=== PATIENT | male | born 1990 ===

== ENCOUNTER 2017-01-08 19:42 | Inpatient (IN) | payer BC, OTHER ==
[2017-01-08 19:42] VITALS: BMI 20.7
[2017-01-08] MEDS ORDERED: Albuterol-Ipratrop 3 mg / 0.5 (3 ml) UD INH STA (20:21)
[2017-01-08] MEDS ORDERED: Albuterol-Ipratrop 3 mg / 0.5 (3 ml) UD ONE (20:25)
--- NOTE | 2017-01-08 20:38 | ED PDOC ---
HPI: Asthma History Per: Patient History/Exam Limitations: no limitations Onset/Duration Of Symptoms: Hrs Current Symptoms Are (Timing): Still Present Associated Symptoms: Dyspnea, Cough, Chest Pain. denies: Sputum Production, Hemoptysis, Fever Precipitating Factors: Weather Change Severity: Moderate Pain Scale Rating Of: 10 Additional Complaint(s): CC: Shortness of breath HPI: The patient is a 26 y/o man w/ PMH of moderate/severe persistent asthma presents with shortness of breath. The SOB started last night with associated non-productive cough and chest pain with cough. The patient denies hemoptysis but does complain of sore throat. The patient denies any sick contacts. The patient reports that he used his ventolin 2 hours before arriving to ED with non relief. The patient reports using inhaler everyday, having nighttime awakenings every night, and hospitalization 1 year ago for asthma related symptoms. The patient reports smoking 4 cigarettes per day for several years ( doesn't know how long) but denies alcohol and other drug use. The patient reports that his father also has asthma. The patient denies headaches, dizziness, abdominal pain, nausea, vomiting, diarrhea, dysuria, and fevers. Allergies: NKDA PMH: mod/severe asthma PSH: right foot plated Fam: father has asthma ROS: negative for 10 systems reviewed excepted for noted in HPI - Asthma History Medication Use: Daily Rescue Medications: Short-acting Agonists Control Medications: None Last Dose: 2 hours ago <Chau Francisco - Last Filed: 01/09/17 00:36> <Kika Santos - Last Filed: 01/09/17 17:17> Time Seen by Provider: 01/08/17 19:47 Chief Complaint (Nursing): Shortness Of Breath Supervising Attending Note - Supervising Attending Note The Documented history was done by the: Physician Psychologist Industrial Organizational, Attending Physician The documented physical exam was done by the: Physician Psychologist Industrial Organizational, Attending Physician - Attestation: I have personally seen and examined this patient.: Yes I have fully participated in the care of the patient.: Yes I have reviewed all pertinent clinical information: Yes - Notes: Notes:: Persistent wheeze and symptoms despite asthma meds in ER. Hospitalized for further management. [facility]. <Kika Santos - Last Filed: 01/09/17 17:17> Past Medical History Vital Signs: Last Vital Signs Temp 98.2 F 01/08/17 19:45 Pulse 65 01/08/17 19:45 Resp 18 01/08/17 20:03 BP 113/58 L 01/08/17 19:45 Pulse Ox 96 01/08/17 20:03 - Medical History PMH: Asthma, Diverticulitis, Hiatal Hernia Denies: Chronic Kidney Disease - Surgical History Surgical History: Denies: Pacemaker - Family History Family History: States: Unknown Family Hx - Immunization History Hx Tetanus Toxoid Vaccination: No Hx Influenza Vaccination: No Hx Pneumococcal Vaccination: No <Chau Francisco - Last Filed: 01/09/17 00:36> Vital Signs: Last Vital Signs Temp 98.1 F 01/09/17 16:52 Pulse 66 01/09/17 16:52 Resp 18 01/09/17 16:52 BP 120/72 01/09/17 16:52 Pulse Ox 98 01/09/17 16:52 <Kika Santos - Last Filed: 01/09/17 17:17> - Home Medications Home Medications: Ambulatory Orders Medication Instructions Recorded Fluticasone/Salmeterol [Advair 1 inh INH BID 12/02/15 500-50 Diskus] oxyCODONE/Acetaminophen [Percocet 1 ea PO QID #6 tab 09/09/16 5/325 mg Tab] Albuterol HFA [Ventolin HFA 90 1 puff IH PRN 01/09/17 mcg/actuation (8 g)] - Allergies Allergies/Adverse Reactions: Allergies Allergy/AdvReac Type Severity Reaction Status Date / Time seafood AdvReac ANAPHYLAXIS Uncoded 12/07/16 15:26 Review of Systems ROS Statement: Except As Marked, All Systems Reviewed And Found Negative Constitutional: Negative for: Fever, Weight loss Eyes: Negative for: Pain ENT: Positive for: Throat Pain. Negative for: Throat Swelling Cardiovascular: Negative for: Palpitations Respiratory: Positive for: Cough, Shortness of Breath, Pleuritic Pain, Wheezing. Negative for: Hemoptysis, Sputum Gastrointestinal: Negative for: Nausea, Vomiting, Abdominal Pain, Diarrhea Genitourinary Male: Negative for: Dysuria Skin: Negative for: Rash Neurological: Negative for: Altered Mental Status, Headache <Maryam,Chau Aldo - Last Filed: 01/09/17 00:36> Physical Exam - Physical Exam Appears: Positive for: No Acute Distress Head Exam: Positive for: ATRAUMATIC, NORMOCEPHALIC Skin: Positive for: Warm, Dry. Negative for: Diaphoresis, Pallor, Rash ENT: Positive for: Pharyngeal Erythema. Negative for: Tonsillar Exudate, Tonsillar Swelling Neck: Positive for: Normal, Supple Cardiovascular/Chest: Positive for: Regular Rate, Rhythm. Negative for: Tachycardia Respiratory: Positive for: Wheezing (inspiratory and expiratory wheeze). Negative for: Accessory Muscle Use, Respiratory Distress Pulses-Carotid (L): 2+ Pulses-Carotid (R): 2+ Pulses-Dorsalis Pedis (L): 2+ Pulses-Dorsalis Pedis (R): 2+ Pulses-Radial (L): 2+ Pulses-Radial (R): 2+ Gastrointestinal/Abdominal: Positive for: Normal Exam, Bowel Sounds, Soft. Negative for: Tenderness, Distended Extremity: Negative for: Tenderness, Pedal Edema, Calf Tenderness Neurologic/Psych: Positive for: Alert, Oriented <Chau Francisco - Last Filed: 01/09/17 00:36> - Laboratory Results Result Diagrams: 01/08/17 22:16 01/08/17 22:16 - ECG O2 Sat by Pulse Oximetry: 96 <Chau Francisco - Last Filed: 01/09/17 00:36> - Laboratory Results Result Diagrams: 01/09/17 05:35 01/09/17 05:35 <Kika Santos - Last Filed: 01/09/17 17:17> Medical Decision Making Medical Decision Making: The patient is a 26 y/o man w/ PMH of moderate/severe persistent asthma presents with shortness of breath 20:30 CXR peak flow duonebs x3 methylprednisolone 125 mg IM tylenol PO motrin PO re-evaluate after duoneb treatments 22:00 improvement of inspiratory wheeze after completing x3 duonebs treatment patient denied tylenol and motrin CXR: (prelim) WNL, no active disease processes seen collect CBC w/ diff, CMP, lactic acid, alcohol level, drug screen, urine dip, blood culture, influenza A/B Toradol IM for pain re-evaluate 24:00 CBC, CMP, alcohol, flu A/B WNL patient still feels ill will be admitted under Dr. Gordon Reyes <Chau Francisco - Last Filed: 01/09/17 00:36> Disposition - Patient ED Disposition Is Patient to be Admitted: Yes Discussed With DrRosie: Kika Santos Counseled Patient/Family Regarding: Studies Performed, Diagnosis, Rx Given - Disposition Disposition Time: 00:03 - Pt Status Changed To: Hospital Disposition Of: Observation - POA Present On Arrival: None <Chau Francisco - Last Filed: 01/09/17 00:36> <Kika Santos - Last Filed: 01/09/17 17:17> - Clinical Impression Clinical Impression: Asthma exacerbation - Disposition Condition: STABLE
[2017-01-08 22:35] LABS: BASO # 0.1 K/uL (0.0-0.2); BASO % 0.7 % (0.0-2.0); EOS # 0.2 K/uL (0.0-0.7); EOS % 1.8 % (0.0-4.0); HEMATOCRIT 41.6 % (35.0-51.0); LYMPH # 1.9 K/uL (1.0-4.3); LYMPH % 20.6 % (20.0-40.0); MEAN CELL VOLUME 96.1 fl (80.0-94.0); MEAN CORPUSCULAR HEMOGLOBIN 31.9 pg (27.0-31.0); MEAN CORPUSCULAR HGB CONC 33.2 g/dL (33.0-37.0); MEAN PLATELET VOLUME 9.6 fl (7.2-11.7); MONO # 0.5 K/uL (0.0-0.8); MONO % 5.5 % (0.0-10.0); NEUT # 6.7 K/uL (1.8-7.0); NEUT % 71.4 % (50.0-75.0); RED CELL DISTRIBUTION WIDTH 13.8 % (11.5-14.5); WHITE BLOOD COUNT 9.3 K/uL (4.8-10.8)
[2017-01-08 22:55] LABS: ALB/GLOB RATIO 1.4 (1.0-2.1); ALCOHOL SERUM < 10 mg/dl (0-10); ALKALINE PHOSPHATASE 70 U/L (38-126); ALT/SGPT 26 U/L (21-72); AST/SGOT 22 U/L (17-59); BILIRUBIN,TOTAL 0.4 mg/dl (0.2-1.3); BLOOD UREA NITROGEN 18 mg/dl (9-20); CALCIUM 8.8 mg/dL (8.4-10.2); CARBON DIOXIDE 25 mmol/L (22-30); CHLORIDE 106 mmol/L (98-107); GFR AFRICAN-AMERICAN > 60; GLUCOSE,RANDOM 92 mg/dL (75-110); POTASSIUM 3.9 MMOL/L (3.6-5.0); SODIUM 141 mmol/l (132-148); TOTAL PROTEIN 6.6 G/DL (6.3-8.2)
[2017-01-09] MEDS: Albuterol 0.083% Inhal Sol (2.5 mg/3 mL) UD INH PRN ×3 (06:28→16:31)
[2017-01-09 06:47] LABS: BASO % 0.1 % (0.0-2.0); HEMATOCRIT 42.4 % (35.0-51.0); LYMPH % 13.6 % (20.0-40.0); MEAN CELL VOLUME 96.3 fl (80.0-94.0); MEAN CORPUSCULAR HEMOGLOBIN 32.1 pg (27.0-31.0); MEAN CORPUSCULAR HGB CONC 33.4 g/dL (33.0-37.0); MEAN PLATELET VOLUME 9.8 fl (7.2-11.7); MONO % 0.6 % (0.0-10.0); NEUT # 6.3 K/uL (1.8-7.0); NEUT % 85.7 % (50.0-75.0); RED CELL DISTRIBUTION WIDTH 13.5 % (11.5-14.5); WHITE BLOOD COUNT 7.4 K/uL (4.8-10.8)
[2017-01-09 06:54] LABS: ALB/GLOB RATIO 1.4 (1.0-2.1); ALKALINE PHOSPHATASE 68 U/L (38-126); ALT/SGPT 29 U/L (21-72); AST/SGOT 25 U/L (17-59); BILIRUBIN,TOTAL 0.6 mg/dl (0.2-1.3); BLOOD UREA NITROGEN 19 mg/dl (9-20); CALCIUM 9.5 mg/dL (8.4-10.2); CARBON DIOXIDE 23 mmol/L (22-30); CHLORIDE 107 mmol/L (98-107); GFR AFRICAN-AMERICAN > 60; GLUCOSE,RANDOM 123 mg/dL (75-110); POTASSIUM 4.4 MMOL/L (3.6-5.0); SODIUM 140 mmol/l (132-148); TOTAL PROTEIN 6.8 G/DL (6.3-8.2)
[2017-01-09 08:23] VITALS: RESP 18; O2SAT 98
--- NOTE | 2017-01-09 10:17 | RAD ---
HISTORY: sob cough COMPARISON: 2010 TECHNIQUE: Chest PA and lateral FINDINGS: LUNGS: No active pulmonary disease. PLEURA: No significant pleural effusion identified. No pneumothorax apparent. CARDIOVASCULAR: Normal. OSSEOUS STRUCTURES: No significant abnormalities. VISUALIZED UPPER ABDOMEN: Normal. OTHER FINDINGS: None. IMPRESSION: No active disease.
--- NOTE | 2017-01-09 11:30 | CP.PCM.CON ---
History of Present Illness - History of Present Illness History of Present Illness: 26 year old male with PMHx of asthma was seen at bedside regarding right foot pain. Patient states that he had a fracture of a metatasal on his right foot and had surgery in November with Dr. Whelan. Since then he has been having pain. He states that he went for a CT and is awaiting the results. Currently, he denies any n/v/f/c/sob/cp. Past Patient History - Infectious Disease Hx of Infectious Diseases: None - Tetanus Immunizations Tetanus Immunization: Unknown - Past Medical History & Family History Past Medical History?: Yes - Past Social History Smoking Status: Light Smoker < 10 Cigarettes Daily - CARDIAC Hx Pacemaker: No - PULMONARY Hx Asthma: Yes - NEUROLOGICAL Hx Paralysis: No - HEENT Hx HEENT Problems: No - RENAL Hx Chronic Kidney Disease: No - ENDOCRINE/METABOLIC Hx Endocrine Disorders: No - HEMATOLOGICAL/ONCOLOGICAL Hx Blood Transfusions: No Hx Blood Transfusion Reaction: No - INTEGUMENTARY Hx Dermatological Problems: No - MUSCULOSKELETAL/RHEUMATOLOGICAL Hx Falls: No - GASTROINTESTINAL Hx Diverticulitis: Yes - GENITOURINARY/GYNECOLOGICAL Hx Genitourinary Disorders: No - PSYCHIATRIC Hx Substance Use: No - SURGICAL HISTORY Hx Musculoskeletal Surgery: Yes (right foot 12/01/16) Hx Orthopedic Surgery: Yes (left hand) - ANESTHESIA Hx Anesthesia: No Hx Anesthesia Reactions: No Hx Malignant Hyperthermia: No Meds Allergies/Adverse Reactions: Allergies Allergy/AdvReac Type Severity Reaction Status Date / Time seafood AdvReac ANAPHYLAXIS Uncoded 12/07/16 15:26 - Medications Medications: Current Medications Albuterol Sulfate (Albuterol 0.083% Inhal Nina (2.5 Mg/3 Ml) Ud) 2.5 mg INH RQ4 PRN PRN Reason: Shortness of Breath Last Admin: 01/09/17 10:59 Dose: 2.5 mg Methylprednisolone 60 mg/ (Sodium Chloride) 50 mls @ 100 mls/hr IV Q12 CRISTIAN Ibuprofen (Motrin Tab) 600 mg PO Q8 PRN PRN Reason: Pain, moderate (4-7) Tramadol HCl (Ultram) 50 mg PO Q8 PRN PRN Reason: Pain, severe (8-10) Last Admin: 01/09/17 11:23 Dose: 50 mg Physical Exam - Constitutional Appears: Well, Non-toxic, No Acute Distress - Extremities Exam Additional comments: Lower extremity focused exam: Vasc:DP and PT pulses palpable 2/4 b/l. CFT < 3 seconds to all digits b/l. Skin temperature warm to warm from proximal to distal b/l. Neuro: Gross sensation intact b/l. Ortho: Pain on palpation to the dorsum of the right foot. Derm: Cicatrix noted to the dorsum of the 2nd metatarsal, well healed. No open lesions. Skin is well hydrated. - Neurological Exam Neurological exam: Alert, Oriented x3 - Psychiatric Exam Psychiatric exam: Normal Affect, Normal Mood Results - Vital Signs Recent Vital Signs: Last Vital Signs Temp 97.6 F 01/09/17 08:22 Pulse 55 L 01/09/17 08:22 Resp 18 01/09/17 08:22 BP 121/71 01/09/17 08:22 Pulse Ox 98 01/09/17 08:22 - Labs Result Diagrams: 01/09/17 05:35 01/09/17 05:35 Assessment & Plan - Assessment and Plan (Free Text) Assessment: 26 year old male with right foot pain Plan: patient examined and evaluated discussed in detail with attending, Dr. Whelan chart and vitals reviewed pain medication per primary team patient is stable from podiatry standpoint patient to follow up with Dr. Whelan in office next week
[2017-01-09] MEDS ORDERED: Promethazine DM 12.5 mg-30 mg/10 ml Syrup PO PRN (13:50)
[2017-01-09 16:53] VITALS: BP 120/72; PULSE 66; TEMP 98.1
[2017-01-09] MEDS ORDERED: methylPREDNISolone 60 MG in Sodium Chloride 0.9% 50 ML IV SCH (21:00)
--- NOTE | 2017-01-09 23:26 | CP.PCM.HP ---
History of Present Illness - History of Present Illness History of Present Illness: This is a 26 y/o male admitted for exacerbation of asthma Claims that he has been using his neb treatment and MDIs but more frequently hence sought medical attention. He was given neb treatment at the Er but wheezing was persistent hence admitted. He also complains of pain on the right foot. he had foot surgery in November and takes Oxycontin for pain. Present on Admission - Present on Admission Any Indicators Present on Admission: No History of DVT/PE: No History of Uncontrolled Diabetes: No Urinary Catheter: No Decubitus Ulcer Present: No Review of Systems - Musculoskeletal Additional comments: pain on the right foot Past Patient History - Infectious Disease Hx of Infectious Diseases: None - Tetanus Immunizations Tetanus Immunization: Unknown - Past Medical History & Family History Past Medical History?: Yes - Past Social History Smoking Status: Light Smoker < 10 Cigarettes Daily - CARDIAC Hx Pacemaker: No - PULMONARY Hx Asthma: Yes - NEUROLOGICAL Hx Paralysis: No - HEENT Hx HEENT Problems: No - RENAL Hx Chronic Kidney Disease: No - ENDOCRINE/METABOLIC Hx Endocrine Disorders: No - HEMATOLOGICAL/ONCOLOGICAL Hx Blood Transfusions: No Hx Blood Transfusion Reaction: No - INTEGUMENTARY Hx Dermatological Problems: No - MUSCULOSKELETAL/RHEUMATOLOGICAL Hx Falls: No - GASTROINTESTINAL Hx Diverticulitis: Yes - GENITOURINARY/GYNECOLOGICAL Hx Genitourinary Disorders: No - PSYCHIATRIC Hx Substance Use: No - SURGICAL HISTORY Hx Musculoskeletal Surgery: Yes (right foot 12/01/16) Hx Orthopedic Surgery: Yes (left hand) - ANESTHESIA Hx Anesthesia: No Hx Anesthesia Reactions: No Hx Malignant Hyperthermia: No Meds Allergies/Adverse Reactions: Allergies Allergy/AdvReac Type Severity Reaction Status Date / Time seafood AdvReac ANAPHYLAXIS Uncoded 12/07/16 15:26 Physical Exam - Head Exam Head Exam: NORMAL INSPECTION - Eye Exam Eye Exam: Normal appearance - ENT Exam ENT Exam: Mucous Membranes Moist - Respiratory Exam Respiratory Exam: Wheezes, NORMAL BREATHING PATTERN - Cardiovascular Exam Cardiovascular Exam: REGULAR RHYTHM - GI/Abdominal Exam GI & Abdominal Exam: Normal Bowel Sounds - Extremities Exam Extremities exam: Positive for: joint swelling Results - Vital Signs Recent Vital Signs: Last Vital Signs Temp 98.1 F 01/09/17 16:52 Pulse 66 01/09/17 16:52 Resp 18 01/09/17 16:52 BP 120/72 01/09/17 16:52 Pulse Ox 98 01/09/17 16:52 - Labs Result Diagrams: 01/09/17 05:35 01/09/17 05:35 Assessment & Plan (1) Pain, foot, chronic Status: Acute (2) Exacerbation of asthma Status: Acute - Assessment and Plan (Free Text) Plan: start IV solumedrol neb tx with duoneb Pain meds. podiatry eval.
== END 2017-01-09 16:54 | disposition left against medical advice (07) | DRG 203 ==
LOC: H.ER 19:42 → H.ERHOLD 01-09 00:07 → H.MEDSURG1 01-09 02:00 → OBSVTOIN 01-09 10:42
PROVIDERS: ADMIT Family Medicine; ATTEND Family Medicine
DX: J45.41 Moderate persistent asthma with (acute) exacerbation (principal); F17.210 Nicotine dependence, cigarettes, uncomplicated; M79.671 Pain in right foot; Z91.013 Allergy to seafood